=== PATIENT | female | born 1935 | race Caucasian/White ===

== ENCOUNTER 2016-10-10 09:57 | Inpatient (IN) | payer OTHER ==
--- NOTE | 2016-10-10 10:10 | PROVIDER DOCUMENTATION ---
HPI-Neurological Disorder - General Chief Complaint: Altered Mental Status Stated Complaint: ams Time Seen by Provider: 10/10/16 09:59 Source: EMS Allergies/Adverse Reactions: Patient Allergies Allergy/AdvReac Type Severity Reaction Status Date / Time ciprofloxacin [From Cipro] Allergy NAUSEA/VOMI Verified 07/13/16 12:01 TING ciprofloxacin HCl * Allergy NAUSEA/VOMI Verified 07/13/16 12:01 [From Cipro] TING codeine Allergy HEADACHE Verified 07/13/16 12:01 iodine Allergy NAUSEA/VOMI Verified 07/13/16 12:01 TING Sulfa (Sulfonamide Allergy NAUSEA/VOMI Verified 07/13/16 12:01 Antibiotics) TING Home Medications: Cyanocobalamin 1,000 mcg IM DIRECTED 03/31/15 Diclofenac 1% Gel [Voltaren 1% Gel] 1 applicatn TOP 4XDAY 03/31/15 Ferrous Sulfate 325 mg PO BID 03/31/15 Omeprazole 40 mg PO DAILY@0700 03/31/15 Polyethylene Glycol 3350 [Miralax] 17 gm PO DAILY PRN 03/31/15 Ranolazine [Ranexa] 1,000 mg PO BID 03/31/15 Ropinirole HCl 2 mg PO HS 03/31/15 Mirtazapine 15 mg PO HS 01/17/16 Nitroglycerin Sl [Nitroglycerin] 1 tab SL PRN PRN 01/17/16 Ondansetron HCl [Zofran] 4 mg PO Q8H PRN PRN 01/17/16 Sennosides/Docusate Sodium [Senna Laxative Tablet] 1 each PO BID PRN PRN Aspirin 81 mg PO DAILY 07/13/16 Isosorb Dinit/Hydralazine [Bidil] 20 - 37.5 mg PO BID 07/13/16 Magnesium Hydroxide [Milk of Magnesia] 30 ml PO DAILY PRN 07/13/16 Furosemide [Lasix] 80 mg PO DAILY 09/20/16 - History of Present Illness-Neuro Nature of Presenting Problem: 80 yo F presents to the ER via EMS with complaint of AMS. Pt was at PT at her rehab facility and staff describe her going "unresponsive". Upon EMS arrival pt was laying in bed, when they called her name she would open her eyes but no response other than that. Staff at rehab facility stated that she was DNR but could not produce the paperwork. State that patient is normally alert and oriented x3. FSBS of 160 upon EMS arrival. EMS state she was sinus bradycardia on the monitor and that she is being treated for pneumonia. Wearing a Fentanyl patch. Onset/Duration: reports: just prior to arrival Context: reports: found un[facility] by jail staff Character of Altered Mental Status: reports: decreased responsiveness Cognitive Baseline: alert, oriented x3 Review of Systems - Adult - REVIEW OF SYSTEMS - ADULT ROS:: unobtainable per condition Constitutional: reports: no symptoms reported Eyes: reports: no symptoms reported Ears, Nose, Mouth & Throat: reports: no symptoms reported Cardiovascular: reports: no symptoms reported Respiratory: reports: no symptoms reported Gastrointestinal: reports: no symptoms reported Genitourinary: reports: no symptoms reported Musculoskeletal: reports: no symptoms reported Integumentary: reports: no symptoms reported Neurological: reports: no symptoms reported Psychiatric: reports: no symptoms reported Endocrine: reports: no symptoms reported Hematologic/Lymphatic: reports: no symptoms reported Allergic/Immunologic: reports: no symptoms reported All Other Systems: Reviewed and Negative Past History - Adult - PAST MEDICAL HISTORY-ADULT Review of Records: reports: Nursing Assessment Review, Medications Reviewed Cardiovascular: reports: A-Fib, CAD, CHF, HTN, hyperlipidemia, other (CMG) Respiratory: reports: other (pulmonary fibrosis) Neurological: reports: dementia Endocrine/Immune: reports: anemia - PRIOR SURGERIES/PROCEDURES Surgical/Procedure History: reports: CABG, cholecystectomy, hysterectomy, other (open heart Sx) - IMMUNIZATION STATUS Childhood Immunizations: UTD Flu Vaccine: UTD - FAMILY HISTORY Family History: reviewed, not pertinent Physical Exam- Neurological - Physical Exam-Neuro General Appearance: lethargic, slow to respond Eye Exam: bilateral eye: PERRL, EOMI HENMT: moist mucous membranes, normal ENT inspection Head Injury: no evidence of injury. negative: ecchymosis Neck: supple, normal inspection Respiratory: no respiratory distress, no accessory muscle use Cardiovascular: normal peripheral pulses, bradycardia. negative: no edema (+2 LE) Peripheral Pulses: dorsalis-pedis (R): 1+, dorsalis-pedis (L): 1+ mold closer Exam: PERRL. negative: normal speech (pt not responding) Integumentary: normal color, warm/dry Progress - PLAN OF CARE/RESULTS Progress/Plan/Lab Results: 1030 - daughter at bedside, states that pt is usually very talkative and alert/ oriented, last night she spoke with her like normal alf states that pt is a full code, daughter states that she is DNR. Vital Signs Temp Pulse Resp BP Pulse Ox 10/10/16 10:05 97.3 F L 63 18 175/67 98 10/10/16 09:58 97.5 F L 60 22 181/71 98 ciprofloxacin [From Cipro] Allergy (Verified 07/13/16 12:01) NAUSEA/VOMITING ciprofloxacin HCl * [From Cipro] Allergy (Verified 07/13/16 12:01) NAUSEA/VOMITING codeine Allergy (Verified 07/13/16 12:01) HEADACHE iodine Allergy (Verified 07/13/16 12:01) NAUSEA/VOMITING Sulfa (Sulfonamide Antibiotics) Allergy (Verified 07/13/16 12:01) NAUSEA/VOMITING Cyanocobalamin 1,000 mcg IM DIRECTED 03/31/15 Diclofenac 1% Gel [Voltaren 1% Gel] 1 applicatn TOP 4XDAY 03/31/15 Ferrous Sulfate 325 mg PO BID 03/31/15 Omeprazole 40 mg PO DAILY@0700 03/31/15 Polyethylene Glycol 3350 [Miralax] 17 gm PO DAILY PRN 03/31/15 Ranolazine [Ranexa] 1,000 mg PO BID 03/31/15 Ropinirole HCl 2 mg PO HS 03/31/15 Mirtazapine 15 mg PO HS 01/17/16 Nitroglycerin Sl [Nitroglycerin] 1 tab SL PRN PRN 01/17/16 Ondansetron HCl [Zofran] 4 mg PO Q8H PRN PRN 01/17/16 Sennosides/Docusate Sodium [Senna Laxative Tablet] 1 each PO BID PRN PRN Aspirin 81 mg PO DAILY 07/13/16 Isosorb Dinit/Hydralazine [Bidil] 20 - 37.5 mg PO BID 07/13/16 Magnesium Hydroxide [Milk of Magnesia] 30 ml PO DAILY PRN 07/13/16 LISINOpril [Prinivil] 40 mg PO DAILY #0 tablet 07/18/16 Furosemide [Lasix] 80 mg PO DAILY 09/20/16 Alprazolam [Xanax] 0.25 mg PO HS #35 tablet 09/23/16 CefDINIR [Omnicef] 300 mg PO BID #14 capsule 09/23/16 Fentanyl 25 Microgm/Hr Patch [Duragesic 25 Microgm/Hr Patch] 1 each TD Q72H #10 patch 09/23/16 Hydrocodone/Acetaminophen [[place] 7.5-325 Tablet] 1 each PO Q8H PRN PRN #30 tablet 09/23/16 Laboratory 10/10/16 10/10/16 10/10/16 10:30 10:30 10:30 WBC 4.64 L RBC 2.80 L Hgb 9.1 L Hct 28.6 L MCV 102.1 H MCH 32.5 H MCHC 31.8 L RDW Std Deviation 14.8 H Plt Count 155 MPV 10.6 H Immature Gran % (Auto) 0.2 Neut % (Auto) 76.5 H Lymph % (Auto) 12.3 L Chambers % (Auto) 8.4 Eos % (Auto) 1.7 Baso % (Auto) 0.9 H Immature Gran # (Auto) 0.01 Neut # 3.55 Lymph # 0.57 L Chambers # 0.39 Eos # 0.08 Baso # 0.04 PT 13.8 INR 1.03 APTT (Factor Assay) 30.9 Specimen Type Sample Site pH pCO2 pO2 HCO3 Base Excess Oxyhemoglobin ABG O2 Sat (Calculated) ABG O2 Saturation ABG Carboxyhemoglobin ABG Methemoglobin Viral Test A-a O2 Difference Total Hemoglobin Lactate Liter Flow Blood Gas Modality FiO2 % Sodium Potassium Chloride Carbon Dioxide Anion Gap BUN Creatinine Estimated GFR/1.73 m2 BUN/Creatinine Ratio Glucose Calculated Osmolality Calcium Total Bilirubin AST ALT Alkaline Phosphatase Troponin T Tob-L-Ynzxweblsoy Pept Total Protein Albumin Globulin Albumin/Globulin Ratio Plasma Lactate 0.9 Urine Source Urine Color Urine Clarity Urine pH Ur Specific [place] Urine Protein Urine Ketones Urine Blood Urine Nitrite Urine Bilirubin Urine Urobilinogen Urine Microscopic RBC Urine WBC Urine Microscopic WBC Ur Epithelial Cells Urine Glucose 10/10/16 10/10/16 10/10/16 10:30 10:30 10:30 WBC RBC Hgb Hct MCV MCH MCHC RDW Std Deviation Plt Count MPV Immature Gran % (Auto) Neut % (Auto) Lymph % (Auto) Chambers % (Auto) Eos % (Auto) Baso % (Auto) Immature Gran # (Auto) Neut # Lymph # Chambers # Eos # Baso # PT INR APTT (Factor Assay) Specimen Type Sample Site pH pCO2 pO2 HCO3 Base Excess Oxyhemoglobin ABG O2 Sat (Calculated) ABG O2 Saturation ABG Carboxyhemoglobin ABG Methemoglobin Viral Test A-a O2 Difference Total Hemoglobin Lactate Liter Flow Blood Gas Modality FiO2 % Sodium 135 L Potassium 4.4 Chloride 94 L Carbon Dioxide 32 Anion Gap 9 BUN 44 H Creatinine 1.6 H Estimated GFR/1.73 m2 31 BUN/Creatinine Ratio 28 Glucose 99 Calculated Osmolality 281 Calcium 8.8 Total Bilirubin 0.60 AST 20 ALT 7 L Alkaline Phosphatase 104 Troponin T 0.030 Efk-U-Bvhyukpfiyw Pept 63838 H Total Protein 6.8 Albumin 3.4 L Globulin 3.0 Albumin/Globulin Ratio 1.0 Plasma Lactate Urine Source Urine Color Urine Clarity Urine pH Ur Specific [place] Urine Protein Urine Ketones Urine Blood Urine Nitrite Urine Bilirubin Urine Urobilinogen Urine Microscopic RBC Urine WBC Urine Microscopic WBC Ur Epithelial Cells Urine Glucose 10/10/16 10/10/16 10:24 10:09 WBC RBC Hgb Hct MCV MCH MCHC RDW Std Deviation Plt Count MPV Immature Gran % (Auto) Neut % (Auto) Lymph % (Auto) Chambers % (Auto) Eos % (Auto) Baso % (Auto) Immature Gran # (Auto) Neut # Lymph # Chambers # Eos # Baso # PT INR APTT (Factor Assay) Specimen Type ARTERIAL Sample Site R BRACHIAL pH 7.46 H pCO2 49 H pO2 53 L HCO3 32.4 H Base Excess 9.8 H Oxyhemoglobin 88.4 L* ABG O2 Sat (Calculated) 11.3 L ABG O2 Saturation 90.9 L ABG Carboxyhemoglobin 1.60 ABG Methemoglobin 1.1 Viral Test NO A-a O2 Difference 85.0 Total Hemoglobin 9.1 L Lactate 0.80 Liter Flow 2.0 Blood Gas Modality CANNULA FiO2 % 28.0 Sodium Potassium Chloride Carbon Dioxide Anion Gap BUN Creatinine Estimated GFR/1.73 m2 BUN/Creatinine Ratio Glucose Calculated Osmolality Calcium Total Bilirubin AST ALT Alkaline Phosphatase Troponin T Cta-H-Jxpdwxwwaia Pept Total Protein Albumin Globulin Albumin/Globulin Ratio Plasma Lactate Urine Source CATH Urine Color DORIS Urine Clarity CLEAR Urine pH 5.0 Ur Specific [place] 1.015 Urine Protein TRACE A Urine Ketones NEGATIVE Urine Blood NEGATIVE Urine Nitrite NEGATIVE Urine Bilirubin NEGATIVE Urine Urobilinogen NORMAL Urine Microscopic RBC Not Reportable Urine WBC NEGATIVE Urine Microscopic WBC <10 Ur Epithelial Cells <10 Urine Glucose NEGATIVE Orders Category Date Time Status CHEST-PORTABLE [RAD] Stat Exams 10/10/16 10:00 Completed HEAD W/O CONTRAST [CT] Stat Exams 10/10/16 10:24 Taken ABG [RESP] Routine Lab 10/10/16 10:24 Completed CBC WITH ELECTRONIC DIFF [HEME] Stat Lab 10/10/16 10:30 Completed COMPREHENSIVE METABOLIC PANEL [CHEM] Stat Lab 10/10/16 10:30 Completed LACTATE, PLASMA [CHEM] Stat Lab 10/10/16 10:30 Completed PRO B-NATRIURETIC PEPTIDE Stat Lab 10/10/16 10:30 Completed PROTIME WITH INR PL [COAG] Stat Lab 10/10/16 10:[address] [COAG] Stat Lab 10/10/16 10:30 Completed TROPONIN T Stat Lab 10/10/16 10:[address] W/POSS RFLX CULT [URINALYSIS] Stat Lab 10/10/16 10:09 Completed EKG [EKG] Stat Ther 10/10/16 10:02 Draft - EKG 1 Time of EKG reading by physician:: 10:05 EKG Read and Signed by:: Evan Guerrero EKG Interpretation (*Must complete 3 of following elements*): Abnormal Rate: 56 Rhythm: atrial fibrillation with slow ventricular response [place]: normal QRS: LVH (minimal voltage criteria, may be normal variant) ME Interval: normal ST Wave: normal Comments: cannot rule out inferior infarct, age undetermined - XRAY 1 XRAY Study: Chest Impression: Abnormal (worseing pulmonary edema vs pneumonia, per radiologist) - CT/MRI 1 CT Study: Head - CONSULTS/PCP/HOSPITALIST Notification #1 *Consult/PCP/Hospitalist*: Dr. Clay Time Discussed: 11:10 Consult Disposition: Admit Departure - Departure Time of Disposition Order: 11:14 DIAGNOSIS: A-fib Qualifiers: Atrial fibrillation type: chronic Qualified Code(s): I48.2 - Chronic atrial fibrillation CHF (congestive heart failure) Qualifiers: Congestive heart failure type: unspecified congestive heart failure type Congestive heart failure chronicity: unspecified congestive heart failure chronicity Qualified Code(s): I50.9 - Heart failure, unspecified Altered mental status Qualifiers: Altered mental status type: unspecified Qualified Code(s): R41.82 - Altered mental status, unspecified Disposition: ADMITTED INPATIENT 09 Certified Medical Emergency: Emergent Condition: Stable Referrals: Sami Shirley [Primary Care Provider] - Attestation - Scribe Verification/Attestation Scribe:: Celeste Mccauley Acting as Scribe for:: Evan Guerrero Scribe documention review:: This chart was documented by a scribe and accurately reflects the service the provider performed and the decisions made by the provider.
[2016-10-10 10:22] LABS: URINE CULTURE PL NEEDED? NO; URINE SOURCE CATH
[2016-10-10 10:28] LABS: BE 9.8 mmoll (-3.0-3.0); BLOOD TYPE ARTERIAL; DRAW SITE R BRACHIAL; METHB 1.1 % (0.0-1.5); O2(CT) 11.3 mL/dL (15.0-23.0); PCO2(98.6) 49 mmHg (35-45); PO2(98.6) 53 mmHg (60-100); SAMPLE BLOOD; SAO2 90.9 % (95.0-100.0); THB 9.1 g/dL (11.5-17.4); pH(98.6) 7.46 (7.35-7.45)
[2016-10-10 10:31] LABS: BILIRUBIN URINE NEGATIVE (NEGATIVE); BLOOD URINE NEGATIVE (NEGATIVE); CLARITY CLEAR (CLEAR); COLOR AMBER; GLUCOSE URINE NEGATIVE (NEGATIVE); LEUKOCYTES URINE NEGATIVE (NEGATIVE); NITRITE URINE NEGATIVE (NEGATIVE); PROTEIN URINE TRACE mg/dL (NEGATIVE); SP GRAVITY URINE 1.015; UROBILINOGEN URINE NORMAL
[2016-10-10 10:36] LABS: MANUAL DIFF NEEDED? NO
[2016-10-10 10:40] LABS: ALLEN TEST NO; MODALITY CANNULA
[2016-10-10 10:45] LABS: URINE EPITHELIAL CELLS <10 /HPF (<10); URINE WBC <10 /HPF (<10)
--- NOTE | 2016-10-10 10:51 | EKG Report ---
Test Performed on : 10/10/2016 10:05:11 AM Test Reason : altered mental status Blood Pressure : / mmHG Vent. Rate : 056 BPM Atrial Rate : 065 BPM P-R Int : 000 ms QRS Dur : 114 ms QT Int : 464 ms P-R-T Axes : 000 002 -32 degrees QTc Int : 447 ms Atrial fibrillation. with slow ventricular response. Minimal voltage criteria for LVH, may be normal variant Cannot rule out Inferior infarct , age undetermined Abnormal ECG When compared with ECG of 20-SEP-2016 13:32, (Unconfirmed) No significant change was found Unconfirmed Result
[2016-10-10 10:55] LABS: ALBUMIN 3.4 g/dL (3.5-5.0); CALCIUM 8.8 mg/dL (8.8-10.2); POTASSIUM 4.4 mmol/L (3.5-5.1); TOTAL BILIRUBIN 0.6 mg/dL (0.20-1.00); TOTAL PROTEIN 6.8 g/dL (6.3-8.3)
[2016-10-10 10:57] LABS: BASO% 0.9 % (0.0-0.8); EOS# 0.08 X1000 (0.0-0.7); EOS% 1.7 % (0.0-10.0); HEMATOCRIT 28.6 % (37.0-47.0); HEMOGLOBIN 9.1 g/dL (12.0-16.0); IMM GRAN# 0.01 X1000 (0.0-0.04); IMM GRAN% 0.2 % (0.0-0.5); LYMPH# 0.57 X1000 (1.2-3.4); LYMPH% 12.3 % (20.5-51.1); MCH 32.5 PG (27-31); MCHC 31.8 g/dL (33-37); MCV 102.1 FL (81-99); MONO# 0.39 X1000 (0.11-0.59); MONO% 8.4 % (1.7-9.3); MPV 10.6 FL (7.4-10.4); NEUT% 76.5 % (42.2-75.2); PLT 155 X1000 (130-400)
--- NOTE | 2016-10-10 11:01 | Diag Imaging Result Document ---
PROCEDURE NAME: CHEST-PORTABLE - 10/10/2016 AP PORTABLE CHEST AT 1005 HOURS: FINDINGS: There is cardiomegaly. There is ill-defined opacity in both lung bases which has worsened, particularly with regard to the right lower lobe since 09/23/2016. IMPRESSION: Worsened pulmonary edema versus pneumonia.
[2016-10-10 11:03] LABS: INR 1.03 (0.86-1.15); PROTIME 13.8 Seconds (12.1-15.5)
[2016-10-10 11:04] LABS: PTT PL 30.9 Seconds (22.6-43.9)
--- NOTE | 2016-10-10 11:16 | Diag Imaging Result Document ---
PROCEDURE NAME: HEAD W/O CONTRAST - 10/10/2016 CT OF THE HEAD WITHOUT CONTRAST: FINDINGS: The study is impaired by patient motion. There is no evidence of bleed or abnormal extraaxial fluid collection and no definite mass effect is present. There are some lucencies in the basal ganglia which apparently were present on 03/19/2016. There are calcifications in the internal carotid and vertebral arteries bilaterally. IMPRESSION: Chronic ischemic changes. No definite evidence of acute disease.
[2016-10-10] MEDS ORDERED: LASIX IV SCH (14:30)
--- NOTE | 2016-10-10 14:57 | HISTORY AND PHYSICAL ---
CHIEF COMPLAINT: Unresponsiveness. HISTORY OF PRESENTING ILLNESS: This is an 80-year-old female with an extensive past medical history, known to this service, who was discharged from our facility on 09/23/2016 after having a CHF exacerbation where she was found to have diastolic congestive heart failure with a ruptured chordae tendinea with severe mitral regurgitation and moderate to severe tricuspid regurgitation. Apparently while she was at her physical therapy today at rehab she became unresponsive. Was sent to [facility] ER via EMS. She was noted to be sinus bradycardic en route. On arrival, her heart rate was 60, blood pressure was 181 /71, saturating 98% on 3 L. Laboratory data showed a proBNP of 32,473 and a creatinine of 1.6. Her baseline appears to be 1.1 to 1.3. A chest x-ray obtained showed worsened pulmonary edema versus pneumonia, stating that there are ill-defined opacities in both lung bases which have worsened particularly with regard to the right lower lobe since 09/23/2016. So, she will be admitted for further evaluation and treatment. PAST MEDICAL HISTORY: GERD, coronary artery disease, anemia, pulmonary fibrosis , atrial fibrillation, [place], CVA, diabetes type 2, seizures, dementia, hypertension, vitamin B12 deficiency, chronic diastolic heart failure with a ruptured chordae tendinea with severe mitral regurgitation and moderate to severe tricuspid regurgitation. PAST SURGICAL HISTORY: CABG, cholecystectomy, and hysterectomy. FAMILY HISTORY: Noncontributory. SOCIAL HISTORY: She currently resides at [facility]. Denies any tobacco, alcohol, or illicit drug use. ALLERGIES: Cipro, codeine, iodine, and sulfa. MEDICATIONS: Home medications are all being held right now. She takes Xanax 0.25 mg p.o. at bedtime, aspirin 81 mg p.o. daily, Omnicef 300 mg p.o. b.i.d., vitamin B12 1000 mcg IM monthly, Voltaren gel 4 times daily, Duragesic 25 mcg/hour patch 1 transdermally q.72 hours, ferrous sulfate 325 mg p.o. b.i.d., Lasix 80 mg p.o. daily, [place] 7.5 one p.o. q.8 hours p.r.n., Prinivil 40 mg p.o. daily, milk of magnesia 30 mL p.o. daily, mirtazapine 15 mg p.o. at bedtime, nitroglycerin 0.4 mg 1 sublingually p.r.n., omeprazole 40 mg p.o. daily at 7 a.m., Zofran 4 mg p.o. q.8 hours p.r.n., MiraLAX 17 g p.o. daily p.r.n., Ranexa 1000 mg p.o. b.i.d., ropinirole 2 mg p.o. at bedtime, and senna laxative 1 p.o. b.i.d. p.r.n. LABORATORY DATA: Showed a white blood cell count of 4.64, hemoglobin 9.1, hematocrit 28.6, platelets 155,000. PT and INR of 13.8 and 1.03. A pH of 7.46, pCO2 of 49, PO2 53, bicarb 32.40. Sodium 135, potassium 4.4, chloride 94, CO2 32, BUN of 44, creatinine 1.6, glucose 99. ProBNP 32,473. Plasma lactate of 0.9. Urinalysis was negative. Chest x-ray showed worsened pulmonary edema versus pneumonia. Head CT showed chronic ischemic changes. No definite evidence of acute disease. EKG showed atrial fibrillation with slow ventricular response at 56. REVIEW OF SYSTEMS: She denied any fever, chills, blurred vision, dizziness, chest pain, coughing, shortness of breath. Denied any constipation, diarrhea, burning or hurting with urination. PHYSICAL EXAMINATION: VITAL SIGNS: Temperature 97.5 degrees, pulse 60, respirations 22, blood pressure 181/71, saturating 98% on 3 L via nasal cannula. GENERAL: This is an 80-year-old female who apparently had been unresponsive at rehab during physical therapy today but at this time is alert and oriented to person, place, and time. HEENT: Normocephalic and atraumatic. Pupils are equal, round, reactive to light. Extraocular movements are intact. Oropharynx and nares are clear. NECK: Supple. LUNGS: Clear to auscultation bilaterally with equal lung expansion and chest wall movement. HEART: With regular rate and rhythm. No murmurs, rubs, or gallops. ABDOMEN: Soft, nontender, nondistended. Bowel sounds are present x4 quadrants. EXTREMITIES: There is no clubbing, cyanosis, or edema. NEUROLOGICAL: The cranial nerves 2 through 12 are grossly intact. Patient is noted to have jerking episodes during our assessment. ASSESSMENT: 1. Altered mental status. 2. Acute on chronic diastolic heart failure. 3. Atrial fibrillation, rate controlled. 4. Hypertension. PLAN: She was admitted to the medical unit at [facility]. Placed on telemetry, O2 per protocol, regular diet. We will give Lasix 40 mg IV q.12 hours. The patient is a DNR. Will recheck a CBC and a BMP in the a.m. Attending, Dr. Clay, will discuss with patient's daughter further treatment options including possibly hospice at discharge and further documentation will occur after that is discussed with the daughter. Dictated by FREDERICK Manning for Felix Clay MD explained to daughter, poor prognosis, will treat her chf, workup her ams, plan for hospice at discharge [facility]
[2016-10-10] MEDS ORDERED: NITROGLYCERIN SL PRN (18:14)
[2016-10-10] MEDS ORDERED: MIRALAX PO PRN (18:14)
[2016-10-10] MEDS ORDERED: PERICOLACE PO PRN (18:14)
[2016-10-10] MEDS ORDERED: DURAGESIC 25 MICROGM/HR PATCH TD SCH (18:15)
[2016-10-10] MEDS: BUMEX IV SCH (18:35)
[2016-10-10] MEDS: RANEXA PO SCH (20:37)
[2016-10-10] MEDS: FERROUS SULFATE PO SCH (20:37)
[2016-10-10] MEDS: REMERON PO SCH (20:37)
[2016-10-10] MEDS: NORCO-7.5 PO PRN (20:37)
[2016-10-10] MEDS: REQUIP PO SCH (20:37)
[2016-10-10] MEDS: XANAX PO SCH (20:37)
[2016-10-10] MEDS: VOLTAREN 1% GEL TOP SCH (20:38)
[2016-10-11] MEDS ORDERED: SODIUM CHLORIDE 0.9% INJ ONE (00:26)
[2016-10-11] MEDS ORDERED: PHENERGAN IV ONE (00:26)
[2016-10-11] MEDS ORDERED: BLISTEX MEDICATED BERRY LIP BALM TOP PRN (01:42)
[2016-10-11] MEDS: ZOFRAN IV PRN ×2 (04:47→20:43)
[2016-10-11] MEDS: BUMEX IV SCH ×2 (06:17→17:39)
[2016-10-11] MEDS: PRILOSEC PO SCH ×2 (06:17→06:22)
[2016-10-11 07:15] LABS: MANUAL DIFF NEEDED? NO
[2016-10-11 07:21] LABS: BASO% 1.2 % (0.0-0.8); EOS# 0.11 X1000 (0.0-0.7); EOS% 2.7 % (0.0-10.0); HEMATOCRIT 27.5 % (37.0-47.0); HEMOGLOBIN 8.7 g/dL (12.0-16.0); IMM GRAN# 0.01 X1000 (0.0-0.04); IMM GRAN% 0.2 % (0.0-0.5); LYMPH% 17.4 % (20.5-51.1); MCH 32.6 PG (27-31); MCHC 31.6 g/dL (33-37); MPV 10.5 FL (7.4-10.4); NEUT% 68.5 % (42.2-75.2); PLT 160 X1000 (130-400); RBC 2.67 XMIL (4.2-5.4)
[2016-10-11 08:02] LABS: CALCIUM 8.7 mg/dL (8.8-10.2); POTASSIUM 4.3 mmol/L (3.5-5.1)
[2016-10-11] MEDS ORDERED: PRINIVIL PO SCH (09:00)
[2016-10-11] MEDS ORDERED: ASPIRIN PO SCH (09:00)
[2016-10-11] MEDS: RANEXA PO SCH ×2 (10:34→20:43)
[2016-10-11] MEDS: FERROUS SULFATE PO SCH ×2 (10:34→20:44)
[2016-10-11] MEDS: VOLTAREN 1% GEL TOP SCH ×4 (10:34→21:34)
[2016-10-11] MEDS: NORCO-7.5 PO PRN ×2 (12:38→20:44)
[2016-10-11 14:34] VITALS: BP 168/64
[2016-10-11] MEDS ORDERED: HALDOL IV PRN (16:13)
--- NOTE | 2016-10-11 16:23 | PROGRESS NOTE ---
DATE: 10/11/2016 SUBJECTIVE: She is much more awake and alert today, not as confused. OBJECTIVE: Vital signs: Blood pressure 168/64, heart rate 89, respiratory rate 18, temperature 97.4 degrees, 90% on room air, 95% on 2 L. Cardiovascular: Regular rate and rhythm. Pulmonary: Bilateral breath sounds. Clear to auscultation. GI: Soft, nontender, nondistended. Bowel sounds are positive. Extremities: No clubbing or cyanosis. Lymphatics: No peripheral edema. Neurological: Nonfocal. LABORATORY DATA: Creatinine is 1.4, was 1.6 yesterday. BUN is about the same. ProBNP 32,473 and troponins are negative. Chest x-ray was read as interstitial edema, worse than last admission, ill-defined, more prominent right lower lobe. PROBLEM LIST: 1. Congestive heart failure exacerbation associated with severe mitral regurgitation and a ruptured chordae tendinea. Patient is obviously not a surgical candidate. We will continue diuresis and try to help improve her respiratory status. Repeat her chest x-ray tomorrow and follow. At this point, the utility of checking anything is limited as far as repeating her echo or anything aggressive and her family does not want her to be aggressive at this point, agree with hospice. 2. Altered mental status. Seems to be improving. May be related to her volume overload issues. 3. Anemia. Also appears to be stable. Continue monitoring. 4. Acute kidney injury. May be related to heart failure and hyperperfusion. Will continue to monitor while on diuretics. 5. Disposition. Hopefully plan to transfer to a senior living for end of life care and hospice, which family is agreeable, hopefully tomorrow.
[2016-10-11] MEDS: REMERON PO SCH (20:43)
[2016-10-11] MEDS: REQUIP PO SCH (20:44)
[2016-10-11] MEDS: XANAX PO SCH (20:44)
[2016-10-11] MEDS ORDERED: ATIVAN IV PRN (21:12)
== END 2016-10-11 22:46 | disposition expired | DRG 314 ==
LOC: P.ED 09:57 → P.MEDSURG 11:22
PROVIDERS: ADMIT Internal Medicine; ATTEND Internal Medicine
DX: I02.0 Rheumatic chorea with heart involvement (principal); I50.33 Acute on chronic diastolic (congestive) heart failure; N17.9 Acute kidney failure, unspecified; J84.10 Pulmonary fibrosis, unspecified; F03.90 Unspecified dementia, unspecified severity, without behavioral disturbance, psychotic disturbance, mood disturbance, and anxiety; E11.9 Type 2 diabetes mellitus without complications; D64.9 Anemia, unspecified; I08.1 Rheumatic disorders of both mitral and tricuspid valves; E53.8 Deficiency of other specified B group vitamins; I48.2 Chronic atrial fibrillation; I25.10 Atherosclerotic heart disease of native coronary artery without angina pectoris; I25.2 Old myocardial infarction; E78.5 Hyperlipidemia, unspecified; K21.9 Gastro-esophageal reflux disease without esophagitis; Z79.899 Other long term (current) drug therapy; Z79.82 Long term (current) use of aspirin; Z86.73 Personal history of transient ischemic attack (TIA), and cerebral infarction without residual deficits; Z95.1 Presence of aortocoronary bypass graft; Z66 Do not resuscitate
CPT/HCPCS: 36415; 51702; 70450; 71010; 80048; 80053; 81001; 82550; 82805; 83605; 83880; 84484; 85014; 85018; 85025; 85610; 85730; 93005; 94761; J1630; J2060; J2405; S0171